=== PATIENT | male | born 2000 | race Caucasian/White ===

== ENCOUNTER → 2022-07-10 10:35 | Outpatient (CLI) | payer OTHER, SELFPAY ==
--- NOTE | ~2022-07-10 | US_ITS ---
EXAMINATION: US venous doppler LE RT DATE: 07/10/2022 11:13 INDICATION: Right lower limb were TECHNIQUE: Juarez scale images without and with compression and Doppler images of the right lower extre mity veins were obtained. COMPARISON: None FINDINGS: The right common femoral vein, profunda femoral vein, femoral vein, popliteal vein, peronea l trunk, posterior tibial veins, and greater saphenous vein are patent. IMPRESSION: 1. Patent right lower extremity veins. No evidence of deep venous thrombosis. Reviewed, dictated and finalized at location B.
== END ==
PROVIDERS: PCP Pediatrics; Visit Provider Pediatrics
DX: M79.661 Pain in right lower leg (principal)
CPT/HCPCS: 93971